=== PATIENT | female | born 1955 | race Caucasian/White ===

== ENCOUNTER 2016-04-10 11:06 | Emergency (ER) | payer OTHER ==
[~2016-04-10 11:06] MED LIST: ALPRAZOLAM0.25 MG PO; ESTROGEN; PULMICORT180 MCG/Ac IH
== END 2016-04-10 12:09 | disposition short-term general hospital (02) ==
LOC: ED 11:06
DX: I63.9 Cerebral infarction, unspecified (principal); Z87.891 Personal history of nicotine dependence